=== PATIENT | male | born 1935 | race Caucasian/White ===

== ENCOUNTER 2018-05-27 20:09 | Inpatient (IN) ==
[2018-05-27] MEDS ORDERED: Sod Chloride 0.9% Inj 1,000 ML IV.CONT SCH (21:45)
[2018-05-27] MEDS ORDERED: Morphine Inj 4 MG/ML Vial IV.PUSH ONE (21:47)
--- NOTE | 2018-05-27 22:42 | ED ---
HPI General Chief complaint: Back Pain/Injury Stated complaint: fall 3 days ago-S1 broken-[facility] in [place] Time Seen by Provider: 05/27/18 21:26 Source: patient and family Mode of arrival: wheelchair Limitations: no limitations History of Present Illness HPI narrative: 83-year-old male brought in by his daughter as well as his for evaluation of worsening lower back pain after a fall that occurred on . The patient had a fall in his bathroom while in the shower on that date. He does not recall the entire fall, and he may have had a syncopal episode at that time. He was evaluated in our [place] ED on 05/22/18, and on that visit he had a CT abdomen pelvis that showed moderate to severe L1 compression fracture with mild posterior retropulsion as well as prominent distention of the bladder with nonspecific enlargement of the prostate gland: Bladder outlet obstruction versus neurogenic bladder. During that visit the emergency department provider advised that she would like to admit the patient, however the patient did not want to be transferred. The on-call neurosurgeon was called during the visit regarding his L1 compression fracture, and plan of care was for a TLSO brace, which the patient has not yet required. Since his fall he has had to wear depends for urinary incontinence. He has never had an issue with incontinence prior to the fall. States that his low back pain has been worsening, is moderate to severe, worse with even the slightest movements. Because of the pain he has not been as active as he usually is, has been spending a lot of time in bed, only to get out to use the restroom. States that the restroom is only a couple of steps away from his bed and he is able to hang onto the wall in order to make his way there. He denies any falls since the initial fall on 05/16/18 or any other syncopal episodes. No fevers. Related Data Previous Rx's Medication Instructions Recorded ibuprofen 600 mg PO TID PRN #14 tab 05/22/18 Allergies Allergy/AdvReac Type Severity Reaction Status Date / Time No Known Allergies Allergy Verified 05/22/18 15:02 Review of Systems ROS: all other systems reviewed are negative [facility] Medical History Medical History Patient denies medical problems (Acute) Surgical History Surgical History S/P lobectomy of lung (Acute) Social History Social History Substance History: No History of Abuse Smoking Status: Never smoker How Often Do You Have a Drink Containing Alcohol: Never Immunization History Tetanus Immunization: Unsure Exam Narrative Exam Narrative: GENERAL: Well-developed, well-nourished, elderly appearing male , comfortable, no apparent distress. SKIN: Focused skin assessment warm/dry. No lacerations, abrasions, or ecchymosis. HEAD: Atraumatic. Normocephalic. EYES: Pupils equal and round. No scleral icterus. No injection or drainage. ENT: No nasal bleeding or discharge. Mucous membranes pink and dry. NECK: Trachea midline. No JVD. No midline cervical spine step-off or tenderness. CARDIOVASCULAR: Regular rate and rhythm. RESPIRATORY: No accessory muscle use. Clear to auscultation. Breath sounds equal bilaterally. GASTROINTESTINAL: Abdomen soft, palpable distended bladder felt near the umbilicus with mild tenderness, no peritoneal signs. This was evaluated using a bedside ultrasound curvilinear probe and shows a very distended bladder. MUSCULOSKELETAL: No obvious deformities. No clubbing. No cyanosis. No edema. Moderate midline lower thoracic and superior lumbar spine tenderness without step-off. NEUROLOGICAL: Awake and alert. No obvious cranial nerve deficits. Normal speech. Normal sensation in all 4 extremities. Normal strength in bilateral upper extremities. 4 out of 5 strength in bilateral lower extremities in flexion and extension. Great toe extension present bilaterally. No saddle anesthesia. PSYCHIATRIC: Appropriate mood and affect; insight and judgment normal. Course Initial Documented Vital Signs Temperature 98.7 F 05/27/18 20:17 Pulse Rate 115 H 05/27/18 20:17 Respiratory Rate 20 05/27/18 20:17 Blood Pressure 138/60 05/27/18 20:17 Pulse Oximetry 96 05/27/18 20:17 Last Documented Vital Signs Temperature 98.7 F 05/27/18 20:17 Pulse Rate 105 H 05/27/18 21:06 Respiratory Rate 18 05/27/18 21:06 Blood Pressure 144/82 H 05/27/18 21:06 Pulse Oximetry 99 05/27/18 21:06 Medical Decision Making MDM Narrative Medical decision making narrative: Vital signs reviewed and show a slight tachycardia with a heart rate of 105. Blood pressure is 144/82. Procedure note: Bedside transabdominal ultrasound: Using a curvilinear ultrasound probe, a bedside transabdominal ultrasound was performed by me and shows a very distended bladder. Gale catheter was placed with 1200 cc of clear urine output. CBC is unremarkable. CMP is remarkable for sodium 131. Lipase is 1596. UA shows trace ketones, not suggestive of UTI. MRI lumbar spine: CONCLUSION: 1. There is an acute compression fracture of the L1 vertebral body with approximately 60% loss of vertebral body height. There is posterior convexity of the posterior margin of the L1 vertebral body but it causes no significant spinal canal stenosis. 2. Remaining levels demonstrate mild degenerative change, as above, but no significant spinal canal stenosis or neural foraminal narrowing is present. MRI thoracic spine: CONCLUSION: 1. There is an acute compression fracture involving the L1 vertebral body with approximately 60% height loss. 2. The thoracic spine demonstrates no acute abnormality. There is no spinal canal stenosis or neural foraminal narrowing. MRI cervical spine: CONCLUSION: 1. Multilevel degenerative disc disease, as above, without significant spinal canal stenosis. 2. There is mild right neural foraminal narrowing at C3-C4. 3. There is slight anterolisthesis of C5 on C6 and C6 on C7. I reviewed the CT abdomen pelvis that the patient had on 05/22/18. He had urinary retention at that time with a distended bladder and an enlarged prostate. I believe that the patient's urinary retention/overflow incontinence is more likely secondary to enlarged prostate as the MRI of his lumbar spine does not show significant canal stenosis. The patient is elderly and frail, and his is also elderly. He was given 2 mg of morphine for his pain which seemed to make him a little drowsy, however he still has lower back pain with movements which improves with rest. I also do not have an explanation for his lipase of 1596. He does not have any abdominal tenderness, and the CT abdomen pelvis performed on prior visit does not show any pancreatic or hepatobiliary abnormalities. At this point the patient will be admitted for at least overnight observation for pain control, IV hydration, repeat lipase, likely neurology and urology consultation. Case discussed with hospitalist Dr. Clements who will admit the patient to the hospitalist service. Medical Screen Exam Complete: Yes Emergency Medical Condition: Yes Differential Diagnosis Differential Diagnosis: Lumbar vertebral fracture with spinal cord compression, urinary retention, obstructive uropathy, metabolic abnormality Lab Data Result diagrams: 05/27/18 22:32 05/27/18 22:32 Lab Results 05/27/18 05/27/18 05/27/18 Range/Units 22:20 22:32 22:32 WBC 9.4 (4.0-11.0) th/mm3 RBC 4.30 L (4.50-5.90) mil/mm3 Hgb 14.3 (13.0-17.0) gm/dL Hct 41.0 (39.0-51.0) % MCV 95.3 (80.0-100.0) fL MCH 33.3 (27.0-34.0) pg MCHC 35.0 (32.0-36.0) % RDW 12.7 (11.6-17.2) % Plt Count 393 (150-450) th/mm3 MPV 7.2 (7.0-11.0) fL Neut % (Auto) 70.3 H (16.0-70.0) % Lymph % (Auto) 18.3 (9.0-44.0) % [place] % (Auto) 9.6 H (0.0-8.0) % Eos % (Auto) 1.0 (0.0-4.0) % Baso % (Auto) 0.8 (0.0-2.0) % Neut # (Auto) 6.6 (1.8-7.7) th/mm3 Lymph # (Auto) 1.7 (1.0-4.8) th/mm3 [place] # (Auto) 0.9 (0.0-0.9) th/mm3 Eos # (Auto) 0.1 (0.0-0.4) th/mm3 Baso # (Auto) 0.1 (0.0-0.2) th/mm3 WBC Differential . Differential Comment Auto diff final PT 10.3 (9.8-11.6) sec INR 1.0 Ratio APTT 28.2 (23.4-31.7) sec Sodium (136-145) meq/L Potassium (3.5-5.1) meq/L Chloride (98-107) meq/L Carbon Dioxide (21.0-32.0) meq/L Anion Gap (5-15) meq/L BUN (7-18) mg/dL Creatinine (0.60-1.30) mg/dL Estimated GFR (>89) mL/min Random Glucose (74-106) mg/dL Calcium (8.5-10.1) mg/dL Magnesium (1.5-2.5) mg/dL Total Bilirubin (0.2-1.0) mg/dL AST (15-37) U/L ALT (12-78) U/L Alkaline Phosphatase (45-117) U/L Total Protein (6.4-8.2) g/dL Albumin (3.4-5.0) g/dL Lipase (73-393) U/L Urine Color Yellow (Yellw/Straw) Urine Clarity Clear (Clear) Urine pH 6.0 (5.0-8.5) Ur Specific [place] 1.013 (1.002-1.035) Urine Protein Negative (Neg-Trace) mg/dL Urine Glucose (UA) Negative (Negative) mg/dL Urine Ketones Trace H (Negative) mg/dL Urine Occult Blood Negative (Negative) Urine Nitrate Negative (Negative) Urine Bilirubin Negative (Negative) Urine Urobilinogen Less than 2 (Less than 2) mg/dL Ur Leukocyte Esterase Negative (Negative) Micro UA Comment Cath-culture not ind Ur Microscopic Review Not Reportable Urine Culture Comments Cath-cult not ind 05/27/18 Range/Units 22:32 WBC (4.0-11.0) th/mm3 RBC (4.50-5.90) mil/mm3 Hgb (13.0-17.0) gm/dL Hct (39.0-51.0) % MCV (80.0-100.0) fL MCH (27.0-34.0) pg MCHC (32.0-36.0) % RDW (11.6-17.2) % Plt Count (150-450) th/mm3 MPV (7.0-11.0) fL Neut % (Auto) (16.0-70.0) % Lymph % (Auto) (9.0-44.0) % [place] % (Auto) (0.0-8.0) % Eos % (Auto) (0.0-4.0) % Baso % (Auto) (0.0-2.0) % Neut # (Auto) (1.8-7.7) th/mm3 Lymph # (Auto) (1.0-4.8) th/mm3 [place] # (Auto) (0.0-0.9) th/mm3 Eos # (Auto) (0.0-0.4) th/mm3 Baso # (Auto) (0.0-0.2) th/mm3 WBC Differential Differential Comment PT (9.8-11.6) sec INR Ratio APTT (23.4-31.7) sec Sodium 131 L (136-145) meq/L Potassium 4.7 (3.5-5.1) meq/L Chloride 97 L (98-107) meq/L Carbon Dioxide 29.7 (21.0-32.0) meq/L Anion Gap 4 L (5-15) meq/L BUN 21 H (7-18) mg/dL Creatinine 1.00 (0.60-1.30) mg/dL Estimated GFR 71 L (>89) mL/min Random Glucose 100 (74-106) mg/dL Calcium 9.8 (8.5-10.1) mg/dL Magnesium 2.7 H (1.5-2.5) mg/dL Total Bilirubin 0.5 (0.2-1.0) mg/dL AST 21 (15-37) U/L ALT 16 (12-78) U/L Alkaline Phosphatase 95 (45-117) U/L Total Protein 7.1 (6.4-8.2) g/dL Albumin 3.4 (3.4-5.0) g/dL Lipase 1597 H (73-393) U/L Urine Color (Yellw/Straw) Urine Clarity (Clear) Urine pH (5.0-8.5) Ur Specific [place] (1.002-1.035) Urine Protein (Neg-Trace) mg/dL Urine Glucose (UA) (Negative) mg/dL Urine Ketones (Negative) mg/dL Urine Occult Blood (Negative) Urine Nitrate (Negative) Urine Bilirubin (Negative) Urine Urobilinogen (Less than 2) mg/dL Ur Leukocyte Esterase (Negative) Micro UA Comment Ur Microscopic Review Urine Culture Comments Imaging Data Radiologist's impression: Lumbar Spine MRI 05/27/18 21:43 CONCLUSION: 1. There is an acute compression fracture of the L1 vertebral body with approximately 60% loss of vertebral body height. There is posterior convexity of the posterior margin of the L1 vertebral body but it causes no significant spinal canal stenosis. 2. Remaining levels demonstrate mild degenerative change, as above, but no significant spinal canal stenosis or neural foraminal narrowing is present. Thoracic Spine MRI 05/27/18 21:43 CONCLUSION: 1. There is an acute compression fracture involving the L1 vertebral body with approximately 60% height loss. 2. The thoracic spine demonstrates no acute abnormality. There is no spinal canal stenosis or neural foraminal narrowing. Cervical Spine MRI 05/27/18 22:43 CONCLUSION: 1. Multilevel degenerative disc disease, as above, without significant spinal canal stenosis. 2. There is mild right neural foraminal narrowing at C3-C4. 3. There is slight anterolisthesis of C5 on C6 and C6 on C7. ECG Data Attestation: I personally reviewed and interpreted this ECG as follows: (Sinus with sinus arrhythmia, rate 94, normal axis, normal intervals, no acute ischemic abnormality.) Discharge Plan Discharge Disposition Patient Disposition: 30 Still Patient Discharge Condition Condition: Stable Discharge Details Diagnosis: Closed compression fracture of L1 lumbar vertebra, Pancreatitis, Urinary retention Physicians Team ED Provider: Chito Motley Primary Care Provider: UNKNOWN, Rxs /Orders / Referrals /Forms Prescriptions: No Action ibuprofen 600 mg tablet 600 mg PO TID PRN (Reason: pain) Qty: 14 RF: 0 Discharge Interventions Interventions: Vital Signs Last Done: 05/27/18 21:06 Status ED Status: With Doctor
[2018-05-27 22:46] LABS: Baso # (Auto) 0.1 th/mm3 (0.0-0.2); Baso % (Auto) 0.8 % (0.0-2.0); Eos # (Auto) 0.1 th/mm3 (0.0-0.4); Hemoglobin 14.3 gm/dL (13.0-17.0); Lymph # (Auto) 1.7 th/mm3 (1.0-4.8); Lymph % (Auto) 18.3 % (9.0-44.0); Mean Corpuscular Hemoglobin 33.3 pg (27.0-34.0); Mean Corpuscular Volume 95.3 fL (80.0-100.0); Mean Platelet Volume 7.2 fL (7.0-11.0); Mono # (Auto) 0.9 th/mm3 (0.0-0.9); Mono % (Auto) 9.6 % (0.0-8.0); Neut # (Auto) 6.6 th/mm3 (1.8-7.7); Neut % (Auto) 70.3 % (16.0-70.0); Platelet Count 393 th/mm3 (150-450); Red Cell Distribution Width 12.7 % (11.6-17.2); White Blood Count 9.4 th/mm3 (4.0-11.0)
[2018-05-27 22:52] LABS: Bilirubin,Urine Negative (Negative); Clarity,Urine Clear (Clear); Color,Urine Yellow (Yellw/Straw); Glucose,Urine (UA) Negative (Negative); Leukocyte Esterase,Urine Negative (Negative); Nitrite,Urine Negative (Negative); Specific Gravity,Urine 1.013 (1.002-1.035)
[2018-05-27 23:08] LABS: Activated Partial Thrombo Time 28.2 sec (23.4-31.7); Prothrombin Time 10.3 sec (9.8-11.6)
[2018-05-27 23:12] LABS: Alanine Aminotransferase 16 U/L (12-78)
[2018-05-27 23:14] LABS: Alkaline Phosphatase 95 U/L (45-117); Lipase 1597 U/L (73-393); Total Protein 7.1 g/dL (6.4-8.2)
--- NOTE | 2018-05-27 23:23 | MR ---
EXAM DATE: 05/27/2018 11:15 PM EST AGE/SEX: 83 years / Male INDICATIONS: Pain. CLINICAL DATA: This is the patient's initial encounter. Patient reports that signs and symptoms have been present for 2 weeks and indicates a pain score of 9/10. MEDICAL/SURGICAL HISTORY: None. Lobectomy. COMPARISON: No prior exams available for comparison. TECHNIQUE: Multiplanar, multisequence MRI of the lumbar spine was performed without contrast. Patie nt was scanned in a sitting position; neutral, flexion, and extension scans were performed in the sa gittal plane. FINDINGS: The most caudal-appearing lumbar vertebra is numbered as L5. VERTEBRAE: There is bone marrow edema with height loss within the L1 vertebral body with approximate ly 60% loss of vertebral body height. There is posterior convexity of the posterior superior margin o f L1. Edema extends into the pedicles bilaterally. Remaining vertebral bodies demonstrate normal heig ht and marrow signal. There is no anterolisthesis or retrolisthesis. [place]US: Normal level and configuration. T12-L1: The posterior convexity of the posterior aspect of the L1 vertebral body secondary to the co mpression fracture effaces the lateral recesses but causes no significant spinal canal stenosis. Ther e is no significant neural foraminal narrowing. L1-L2: No disc herniation, canal stenosis, or neural foraminal stenosis. L2-L3: There is a mild diffuse disc bulge and mild facet and ligamentum flavum hypertrophy. No signi ficant spinal canal stenosis or neural foraminal stenosis is present. L3-L4: There is disc desiccation with a diffuse disc bulge and mild facet and ligamentum flavum hype rtrophy. No spinal canal stenosis or neural foraminal narrowing is present. L4-L5: There is a diffuse disc bulge with moderate facet and ligamentum flavum hypertrophy. No spina l canal stenosis or neural foraminal narrowing is present. L5-S1: There is moderate bilateral facet hypertrophy. No significant disc herniation, canal stenosis , or neural foraminal stenosis is present. Other: The visualized surrounding structures demonstrate no acute abnormality. CONCLUSION: 1. There is an acute compression fracture of the L1 vertebral body with approximately 60% loss of ve rtebral body height. There is posterior convexity of the posterior margin of the L1 vertebral body bu t it causes no significant spinal canal stenosis. 2. Remaining levels demonstrate mild degenerative change, as above, but no significant spinal canal stenosis or neural foraminal narrowing is present. Electronically signed by: Irineo Dubose MD 05/27/2018 11:21 PM EST
--- NOTE | 2018-05-27 23:24 | MR ---
EXAM DATE: 05/27/2018 11:07 PM EST AGE/SEX: 83 years / Male INDICATIONS: Pain. Patient fall about 10 days ago. CLINICAL DATA: This is the patient's initial encounter. Patient reports that signs and symptoms have been present for 2 weeks and indicates a pain score of 9/10. MEDICAL/SURGICAL HISTORY: None. Lobectomy. COMPARISON: No prior exams available for comparison. TECHNIQUE: Multiplanar, multisequence MRI of the thoracic spine was performed. FINDINGS: Vertebrae: There is bone marrow edema and height loss involving the L1 vertebral body with approxima tely 60% loss of vertebral body height consistent with an acute compression fracture. The vertebral b odies throughout the thoracic spine demonstrate normal marrow signal and vertebral body height. Alignment: No anterolisthesis or retrolisthesis. There is accentuated thoracic kyphosis. Cord: Normal signal. T1-T2: No disc herniation, canal stenosis, or neural foraminal stenosis. T2-T3: No disc herniation, canal stenosis, or neural foraminal stenosis. T3-T4: No disc herniation, canal stenosis, or neural foraminal stenosis. T4-T5: No disc herniation, canal stenosis, or neural foraminal stenosis. T5-T6: No disc herniation, canal stenosis, or neural foraminal stenosis. T6-T7: No disc herniation, canal stenosis, or neural foraminal stenosis. T7-T8: No disc herniation, canal stenosis, or neural foraminal stenosis. T8-T9: No disc herniation, canal stenosis, or neural foraminal stenosis. T9-T10: No disc herniation, canal stenosis, or neural foraminal stenosis. T10-T11: No disc herniation, canal stenosis, or neural foraminal stenosis. T11-T12: No disc herniation, canal stenosis, or neural foraminal stenosis. T12-L1: No disc herniation, canal stenosis, or neural foraminal stenosis. Other: The visualized surrounding structures demonstrate no acute abnormality. CONCLUSION: 1. There is an acute compression fracture involving the L1 vertebral body with approximately 60% hei ght loss. 2. The thoracic spine demonstrates no acute abnormality. There is no spinal canal stenosis or neural foraminal narrowing. Electronically signed by: Irineo Dubose MD 05/27/2018 11:23 PM EST
[2018-05-27 23:32] LABS: Albumin 3.4 g/dL (3.4-5.0); Anion Gap 4 meq/L (5-15); Aspartate Aminotransferase 21 U/L (15-37); Blood Urea Nitrogen 21 mg/dL (7-18); Calcium 9.8 mg/dL (8.5-10.1); Carbon Dioxide 29.7 meq/L (21.0-32.0); Chloride 97 meq/L (98-107); Glomerular Filtration Rate 71 mL/min (>89); Glucose,Random 100 mg/dL (74-106); Magnesium 2.7 mg/dL (1.5-2.5); Potassium 4.7 meq/L (3.5-5.1); Sodium 131 meq/L (136-145)
--- NOTE | 2018-05-27 23:58 | MR ---
EXAM DATE: 05/27/2018 11:42 PM EST AGE/SEX: 83 years / Male INDICATIONS: Pain. CLINICAL DATA: This is the patient's initial encounter. Patient reports that signs and symptoms have been present for 2 weeks and indicates a pain score of 9/10. MEDICAL/SURGICAL HISTORY: None. Lobectomy. COMPARISON: No prior exams available for comparison. TECHNIQUE: Multiplanar, multisequence MRI examination of the cervical spine was performed without co ntrast. FINDINGS: Vertebrae: Bone marrow signal is within normal limits. No acute abnormality. Alignment: There is minimal anterolisthesis of C5 on C6 and C6 on C7 measuring approximately 3 mm at each level. There is accentuated lordosis. Cord: There is a focal T2 signal within the central cord at the C4-C5 level. Otherwise, spinal cord signal is within normal limits. Post Fossa: The cerebellar tonsils are normal in position. The craniocervical junction and C1-C2 level demonstrate no acute abnormality. C2-C3: Decreased disc height. No spinal canal stenosis or neural foraminal narrowing is present. C3-C4: Decreased disc height. There are small uncovertebral osteophytes bilaterally. No spinal canal stenosis is present. There is mild right neural foraminal narrowing. C4-C5: Decreased disc height with mild right facet arthrosis. There is a small right uncovertebral o steophyte. No significant spinal canal stenosis or neural foraminal narrowing is present. C5-C6: Decreased disc height with minimal posterior disc osteophyte complex. No spinal canal stenosi s or neural foraminal narrowing is appreciated. C6-C7: Decreased disc height with minimal posterior disc osteophyte complex no spinal canal stenosis or neural foraminal narrowing is present. C7-T1: No disc herniation, canal stenosis, or neural foraminal stenosis. Other: The visualized surrounding structures demonstrate no acute abnormality. CONCLUSION: 1. Multilevel degenerative disc disease, as above, without significant spinal canal stenosis. 2. There is mild right neural foraminal narrowing at C3-C4. 3. There is slight anterolisthesis of C5 on C6 and C6 on C7. Electronically signed by: Irineo Dubose MD 05/27/2018 11:56 PM EST
[2018-05-28] MEDS ORDERED: Acetaminophen 325 MG Tablet PO PRN (00:08)
[2018-05-28] MEDS ORDERED: Bisacodyl 10 MG Supp RECTAL PRN (00:08)
[2018-05-28] MEDS ORDERED: Sod Chloride 0.9% Inj 1,000 ML IV.CONT SCH (00:15)
--- NOTE | 2018-05-28 00:46 | P.HPIM ---
History of Present Illness Primary Care Physician: UNKNOWN History of Present Illness: This is an 83 year old male w/ no significant PMH who was brought to the ER by family for c/o back pain. Seen in [place] ER on 05/22/18 for similar complaints. Pt had apparent fall w/ syncope few days prior to that on 05/16/18 and had fall while in the bathtub, had ongoing complaints of back pain and presented to [place] ER on 05/22. CT Abd/Pelvis at that time w/ moderate to severe L1 compression fracture and distention of the bladder, Dr. Champagne was contacted by the ER physician who recommended non-surgical intervention and to have pt come to [place] to be fitted for a TLSO brace. Per pt and family they weren't able to come here until tonight. and daughter at bedside report pt w/ worsening back pain, inability to ambulate due to pain complaints and decreased urine output. On arrival, BP 138/60, HR 115, O2 sat 96% on RA, Afebrile. CBC unremarkable. Lipase 1597. U/a negative for UTI. S/p Gale placement w/ approx 1200ml output. reports issues w/ urinary retention since fall. C-Spine MRI w/ no significant stenosis, T/L-Spine MRI w/ acute compression fracture L1 w/ 60% loss of height, no significant canal stenosis. - Diagnosis (1) Pancreatitis (2) Urinary retention (3) Closed compression fracture of L1 lumbar vertebra Review of Systems PAST FAMILY HISTORY: Reviewed. No h/o DM or CAD All other systems reviewed negative except as stated in HPI PMFSH - History History Provided By: Patient - Medical History Medical History: Medical History (Last Reviewed 05/22/18 @ 15:28 by Bebo Wong MD) Patient denies medical problems - Surgical History Surgical History: Surgical History (Last Updated 05/27/18 @ 21:01 by Kg Mendenhall) S/P lobectomy of lung - Tobacco History Smoking Status: Never smoker - Alcohol History How Often Do You Have a Drink Containing Alcohol: Never - Substance Use History Substance History: No History of Abuse - Immunization History Tetanus Immunization: Unsure Medications and Allergies Active Medications: Active Medications Acetaminophen (Tylenol) 650 mg PO Q4H PRN PRN Reason: Temp > 100.4 Hydrocodone Bitart/Acetaminophen ([place] 5/325) 1 tab PO Q4H PRN PRN Reason: PAIN 3-5 Al Hydroxide/Mg Hydroxide (Milk Of Magnesia Liq) 30 ml PO Q12H PRN PRN Reason: Mild Constipation Bisacodyl (Dulcolax Supp) 10 mg RECTAL DAILY PRN PRN Reason: SEVERE CONSITIPATION Sodium Chloride (Ns Inj) 1,000 mls @ 125 mls/hr IV.CONT .Q8H [facility] Stop: 05/28/18 05:44 Last Admin: 05/27/18 22:36 Dose: 125 mls/hr Sodium Chloride (Ns Inj) 1,000 mls @ 100 mls/hr IV.CONT .Q10H [facility] Stop: 05/28/18 10:14 Lactulose (Lactulose Liq) 30 ml PO DAILY PRN PRN Reason: SEVERE CONSITIPATION Morphine Sulfate (Morphine Inj) 2 mg IV.PUSH Q4H PRN PRN Reason: PAIN 6-10 Ondansetron HCl (Zofran Inj) 4 mg IV.PUSH Q6H PRN PRN Reason: NAUSEA OR VOMITING Senna/Docusate Sodium (Yani-Colace) 1 tab PO BID [facility] Sennosides (Senokot) 17.2 mg PO Q12H PRN PRN Reason: Moderate Constipation Sodium Chloride (Ns Flush) 2 ml IV.FLUSH PRN PRN PRN Reason: FLUSH AFTER USING IV ACCESS Sodium Chloride (Ns Flush) 2 ml IV.FLUSH BID JEFF Sodium Chloride (Ns Flush) 2 ml IV.FLUSH PRN PRN PRN Reason: FLUSH AFTER USING IV ACCESS Tamsulosin HCl (Flomax) 0.4 mg PO DAILY [facility] Allergies Allergy/AdvReac Type Severity Reaction Status Date / Time No Known Allergies Allergy Verified 05/22/18 15:02 Exam Vital signs: Vital Signs 05/27/18 20:17 05/27/18 21:06 Temperature 98.7 F Pulse Rate 115 H 105 H Respiratory Rate 20 18 Blood Pressure 138/60 144/82 H Pulse Oximetry 96 99 Intake & Output 05/27/18 05/27/18 05/28/18 06:59 18:59 06:59 Output Total 1200 / 1200 Balance -1200 / -1200 Weight 54.431 kg Output: Urine Amount (Catheter) 1200 / 1200 Indwelling Urethral Catheter 1200 / 1200 Narrative: PE: GENERAL: Pleasant elderly white male in no acute distress, very thin. and daughter at bedside. SKIN: Focused skin assessment warm and dry. HEENT: PERRLA, EOMI. No scleral icterus or conjunctival pallor. No lid lag or facial droop. CARDIOVASCULAR: Regular rate and rhythm. no obvious murmurs to auscultation. No chest tenderness to palpation. RESPIRATORY: No obvious rhonchi or wheezing. Clear to auscultation. Breath sounds equal bilaterally. GASTROINTESTINAL: Abdomen soft, non-tender, nondistended. BS normal. Gale in place. MUSCULOSKELETAL: Extremities without clubbing, cyanosis, or edema. No obvious deformities. NEUROLOGICAL: Awake, alert and oriented x4. No focal neurologic deficits. Moving both upper and lower extremities spontaneously. PSYCHIATRIC: Appropriate mood and affect. Insight and judgment normal. Results - Labs CBC & Chem 7: 05/27/18 22:32 05/27/18 22:32 Labs: Short CBC 05/27/18 Range/Units 22:32 WBC 9.4 (4.0-11.0) th/mm3 Hgb 14.3 (13.0-17.0) gm/dL Hct 41.0 (39.0-51.0) % Plt Count 393 (150-450) th/mm3 BMP 05/27/18 22:32 Sodium 131 L Potassium 4.7 Chloride 97 L Carbon Dioxide 29.7 BUN 21 H Creatinine 1.00 Calcium 9.8 Liver Function 05/27/18 Range/Units 22:32 Total Bilirubin 0.5 (0.2-1.0) mg/dL AST 21 (15-37) U/L ALT 16 (12-78) U/L Alkaline Phosphatase 95 (45-117) U/L Albumin 3.4 (3.4-5.0) g/dL Urine 05/27/18 Range/Units 22:20 Urine Color Yellow (Yellw/Straw) Urine Clarity Clear (Clear) Urine pH 6.0 (5.0-8.5) Ur Specific [place] 1.013 (1.002-1.035) Urine Protein Negative (Neg-Trace) mg/dL Urine Glucose (UA) Negative (Negative) mg/dL - Imaging Impressions Lumbar Spine MRI 05/27/18 21:43 CONCLUSION: 1. There is an acute compression fracture of the L1 vertebral body with approximately 60% loss of vertebral body height. There is posterior convexity of the posterior margin of the L1 vertebral body but it causes no significant spinal canal stenosis. 2. Remaining levels demonstrate mild degenerative change, as above, but no significant spinal canal stenosis or neural foraminal narrowing is present. Thoracic Spine MRI 05/27/18 21:43 CONCLUSION: 1. There is an acute compression fracture involving the L1 vertebral body with approximately 60% height loss. 2. The thoracic spine demonstrates no acute abnormality. There is no spinal canal stenosis or neural foraminal narrowing. Cervical Spine MRI 05/27/18 22:43 CONCLUSION: 1. Multilevel degenerative disc disease, as above, without significant spinal canal stenosis. 2. There is mild right neural foraminal narrowing at C3-C4. 3. There is slight anterolisthesis of C5 on C6 and C6 on C7. Caprini VTE Risk Assessment Caprini VTE Risk Assessment: No/Low Risk (score <= 1) Caprini Risk Assessment Model: Point Value = 1 Point Value = 2 Point Value = 3 Point Value = 5 Age 41-60 Minor surgery BMI > 25 kg/m2 Swollen legs Varicose veins or History of unexplained or recurrent spontaneous Oral contraceptives or hormone replacement Sepsis (< 1 month) Serious lung disease, including pneumonia (< 1 month) Abnormal pulmonary function Acute myocardial infarction Congestive heart failure (< 1 month) History of inflammatory bowel disease Medical patient at bed rest Age 61-74 Arthroscopic surgery Major open surgery (> 45 min) Laparoscopic surgery (> 45 min) Malignancy Confined to bed (> 72 hours) Immobilizing plaster cast Central venous access Age >= 75 History of VTE Family history of VTE Factor V Leiden Prothrombin [id number] Lupus anticoagulant Anticardiolipin antibodies Elevated serum homocysteine Heparin-induced thrombocytopenia Other congenital or acquired thrombophilia Stroke (< 1 month) Elective arthroplasty Hip, pelvis, or leg fracture Acute spinal cord injury (< 1 month) Prophylaxis Regimen: Total Risk Factor Score Risk Level Prophylaxis Regimen 0-1 Low Early ambulation 2 Moderate Order ONE of the following: *Sequential Compression Device (SCD) *Heparin 5000 units SQ BID 3-4 Higher Order ONE of the following medications: *Heparin 5000 units SQ TID *Enoxaparin/Lovenox 40 mg SQ daily (WT < 150 kg, CrCl > 30 mL/min) *Enoxaparin/Lovenox 30 mg SQ daily (WT < 150 kg, CrCl > 10-29 mL/min) *Enoxaparin/Lovenox 30 mg SQ BID (WT < 150 kg, CrCl > 30 mL/min) AND/OR *Sequential Compression Device (SCD) 5 or more Highest Order ONE of the following medications: *Heparin 5000 units SQ TID (Preferred with Epidurals) *Enoxaparin/Lovenox 40 mg SQ daily (WT < 150 kg, CrCl > 30 mL/min) *Enoxaparin/Lovenox 30 mg SQ daily (WT < 150 kg, CrCl > 10-29 mL/min) *Enoxaparin/Lovenox 30 mg SQ BID (WT < 150 kg, CrCl > 30 mL/min) AND *Sequential Compression Device (SCD) Assessment and Plan - Assessment (1) Pancreatitis Code(s): K85.90 - Acute pancreatitis without necrosis or infection, unspecified Status: Acute (2) Urinary retention Code(s): R33.9 - Retention of urine, unspecified Status: Acute (3) Closed compression fracture of L1 lumbar vertebra Code(s): S32.010A - Wedge compression fracture of first lumbar vertebra, initial encounter for closed fracture Status: Acute - Plan A/P: 1. L1 Compression Fx: s/p syncopal event while in the bath on 05/16/18, seen in [place] ER on 05/22/18 for ongoing c/o back pain, CT Abd/Pelvis w/ L1 compression fracture, Dr. Champagne consulted at that time, no surgical intervention , recommendation for TLSO fitting here at [place]. Now w/ ongoing/progressive back pain and worsening mobility, unable to ambulate due to pain. MRI T/L- Spine w/ acute L1 compression fracture, no canal stenosis. TLSO brace, Consult NxSx for further evaluation/intervention. PT for eval/tx. 2. Pancreatitis: Lipase 1500, no c/o abdominal pain, no nausea/vomiting. IVF for hydration, repeat Lipase for trend. 3. Urinary Retention: CT Abd/Pelvis 05/22/18 w/ distention of bladder and enlargement of prostate, s/p Gale in ER today w/ 1200ml urine output, start Flomax, monitor I/O, Urology eval as needed. 4. Syncope: reports multiple episodes of syncope, no previous work up in the past as he did not seek medical attention. Telemetry, check serial cardiac enzymes, check Echo to eval for valvular abnormality/cardiomyopathy. 5. DVT Prophylaxis: SCD/Teds 6. Social work for d/c planning as needed. 7. Case discussed w/ ER physician at length, labs/records/imaging reviewed by me.
[2018-05-28] MEDS: Morphine Sulfate Inj 2 MG/ML Vial IV.PUSH PRN ×2 (02:39→15:09)
[2018-05-28 06:26] LABS: Baso # (Auto) 0.1 th/mm3 (0.0-0.2); Baso % (Auto) 0.7 % (0.0-2.0); Eos # (Auto) 0.1 th/mm3 (0.0-0.4); Hematocrit 39.8 % (39.0-51.0); Hemoglobin 14.1 gm/dL (13.0-17.0); Lymph # (Auto) 1.6 th/mm3 (1.0-4.8); Lymph % (Auto) 15.4 % (9.0-44.0); Mean Corpuscular HGB Conc 35.4 % (32.0-36.0); Mean Corpuscular Hemoglobin 34.3 pg (27.0-34.0); Mean Corpuscular Volume 96.7 fL (80.0-100.0); Mean Platelet Volume 7.1 fL (7.0-11.0); Mono % (Auto) 9.1 % (0.0-8.0); Neut # (Auto) 7.9 th/mm3 (1.8-7.7); Neut % (Auto) 73.8 % (16.0-70.0); Platelet Count 393 th/mm3 (150-450); Red Blood Count 4.12 mil/mm3 (4.50-5.90); Red Cell Distribution Width 12.5 % (11.6-17.2); White Blood Count 10.7 th/mm3 (4.0-11.0)
[2018-05-28 06:53] LABS: Albumin 3.1 g/dL (3.4-5.0); Anion Gap 6 meq/L (5-15); Aspartate Aminotransferase 15 U/L (15-37); Blood Urea Nitrogen 21 mg/dL (7-18); Calcium 9.1 mg/dL (8.5-10.1); Carbon Dioxide 30.7 meq/L (21.0-32.0); Chloride 99 meq/L (98-107); Glomerular Filtration Rate 88 mL/min (>89); Glucose,Random 92 mg/dL (74-106); Lipase 286 U/L (73-393); Potassium 4.6 meq/L (3.5-5.1); Sodium 136 meq/L (136-145)
[2018-05-28 06:56] LABS: Alanine Aminotransferase 13 U/L (12-78); Alkaline Phosphatase 88 U/L (45-117); Total Protein 6.5 g/dL (6.4-8.2)
[2018-05-28] MEDS: Senna/Docusate Sodium 8.6/50 MG Tablet PO SCH ×2 (08:49→20:45)
--- NOTE | 2018-05-28 10:15 | P.CONNS ---
History of Present Illness Reason for Consult: L1 compression fx Primary Care Provider: UNKNOWN History of Present Illness: 83yoM admitted overnight through the ER with syncope and acute L1 compression fx. Endorses back pain. TLSO brace at bedside. Neurologically intact. Has been vomiting (including breakfast today)-- last pain med 2am. PMFSH - History History Provided By: Patient - Medical History Medical History: Medical History (Last Reviewed 05/28/18 @ 09:20 by Yenifer Moss) Patient denies medical problems - Surgical History Surgical History: Surgical History (Last Reviewed 05/28/18 @ 09:20 by Yenifer Moss) S/P lobectomy of lung - Tobacco History Second Hand Smoke Exposure: No Smoking Status: Never smoker - Alcohol History How Often Do You Have a Drink Containing Alcohol: Never - Substance Use History Substance History: No History of Abuse - Immunization History Tetanus Immunization: Unsure Medications and Allergies Active Medications: Active Medications Acetaminophen (Tylenol) 650 mg PO Q4H PRN PRN Reason: Temp > 100.4 Hydrocodone Bitart/Acetaminophen ([place] 5/325) 1 tab PO Q4H PRN PRN Reason: PAIN 3-5 Al Hydroxide/Mg Hydroxide (Milk Of Magnesia Liq) 30 ml PO Q12H PRN PRN Reason: Mild Constipation Bisacodyl (Dulcolax Supp) 10 mg RECTAL DAILY PRN PRN Reason: SEVERE CONSITIPATION Sodium Chloride (Ns Inj) 1,000 mls @ 100 mls/hr IV.CONT .Q10H [facility] Stop: 05/28/18 10:14 Last Admin: 05/28/18 00:55 Dose: 100 mls/hr Lactulose (Lactulose Liq) 30 ml PO DAILY PRN PRN Reason: SEVERE CONSITIPATION Morphine Sulfate (Morphine Inj) 2 mg IV.PUSH Q4H PRN PRN Reason: PAIN 6-10 Last Admin: 05/28/18 02:39 Dose: 2 mg Ondansetron HCl (Zofran Inj) 4 mg IV.PUSH Q6H PRN PRN Reason: NAUSEA OR VOMITING Last Admin: 05/28/18 08:53 Dose: 4 mg Senna/Docusate Sodium (Yani-Colace) 1 tab PO BID JEFF Last Admin: 05/28/18 08:49 Dose: 1 tab Sennosides (Senokot) 17.2 mg PO Q12H PRN PRN Reason: Moderate Constipation Sodium Chloride (Ns Flush) 2 ml IV.FLUSH PRN PRN PRN Reason: FLUSH AFTER USING IV ACCESS Sodium Chloride (Ns Flush) 2 ml IV.FLUSH BID [facility] Last Admin: 05/28/18 08:50 Dose: Not Given Sodium Chloride (Ns Flush) 2 ml IV.FLUSH PRN PRN PRN Reason: FLUSH AFTER USING IV ACCESS Tamsulosin HCl (Flomax) 0.4 mg PO DAILY [facility] Last Admin: 05/28/18 08:49 Dose: 0.4 mg Allergies Allergy/AdvReac Type Severity Reaction Status Date / Time No Known Allergies Allergy Verified 05/22/18 15:02 Exam Vital signs: Vital Signs 05/27/18 20:17 05/27/18 21:06 05/28/18 01:12 Temperature 98.7 F Pulse Rate 115 H 105 H 97 H Respiratory Rate 20 18 18 Blood Pressure 138/60 144/82 H 131/73 Pulse Oximetry 96 99 97 05/28/18 02:19 05/28/18 02:30 05/28/18 03:55 Temperature 97.2 F L 97.8 F Pulse Rate 100 H 110 H Respiratory Rate 16 16 16 Blood Pressure 121/61 121/71 Pulse Oximetry 98 97 05/28/18 08:00 Temperature 97.5 F L Pulse Rate 99 H Respiratory Rate 18 Blood Pressure 122/57 L Pulse Oximetry 99 Intake & Output 05/27/18 05/28/18 05/28/18 18:59 06:59 18:59 Intake Total 250 / 250 Output Total 1325 / 1325 Balance -1075 / -1075 Weight 55.5 kg Intake: IV 250 / 250 NS Inj 1,000 ML @ 125 mls/hr IV 250 / 250 .CONT .Q8H [facility] Rx#:[id number] Oral 0 / 0 Output: Urine 125 / 125 Urine Amount (Catheter) 1200 / 1200 Indwelling Urethral Catheter 1200 / 1200 Other: Date of Last Bowel Movement 05/26/18 05/26/18 # Bowel Movements 0 Weight On Admission 54.431 kg Narrative: A&O x 3 CN II-XII intact Motor 5/5 UE / LE Results - Laboratory Findings CBC and BMP: 05/28/18 05:44 05/28/18 05:44 Abnormal lab findings: Abnormal Labs 05/27/18 05/27/18 05/27/18 22:20 22:32 22:32 RBC 4.30 L MCH Neut % (Auto) 70.3 H [place] % (Auto) 9.6 H Neut # (Auto) [place] # (Auto) Sodium 131 L Chloride 97 L Anion Gap 4 L BUN 21 H Estimated GFR 71 L Magnesium 2.7 H Albumin Lipase 1597 H Urine Ketones Trace H 05/28/18 05/28/18 05:44 05:44 RBC 4.12 L MCH 34.3 H Neut % (Auto) 73.8 H [place] % (Auto) 9.1 H Neut # (Auto) 7.9 H [place] # (Auto) 1.0 H Sodium Chloride Anion Gap BUN 21 H Estimated GFR 88 L Magnesium Albumin 3.1 L Lipase Urine Ketones Assessment and Plan - Plan 83yoM with acute l1 compression fx. Reviewed MRI C/T/L-spines. Agree w/ TLSO bracing-- could switch to just LSO if this is uncomfortable check w/ [facility]. Out of bed with PT, and brace when OOB. Pain control. Nausea-- unclear source, minimize narcotics, if Zofran didnt work could try Reglan but cautious in older people.
--- NOTE | 2018-05-28 13:14 | ECG ---
Date Performed: 05/27/2018 Time Performed: 22:15:15 PTAGE: 83 years EKG: Sinus rhythm WITH MARKED SINUS ARRHYTHMIA BORDERLINE ECG NO PREVIOUS TRACING DOCTOR: Mejia Wolff Interpretating Date/Time 05/28/2018 13:11:35
--- NOTE | 2018-05-28 15:28 | P.PNIM ---
Subjective Interval history: Patient had nausea and vomiting earlier today. Symptoms improved and he tolerated lunch. Continues to have significant back pain. Physical Exam Vital signs: Vital Signs 05/27/18 20:17 05/27/18 21:06 05/28/18 01:12 Temperature 98.7 F Pulse Rate 115 H 105 H 97 H Respiratory Rate 20 18 18 Blood Pressure 138/60 144/82 H 131/73 Pulse Oximetry 96 99 97 05/28/18 02:19 05/28/18 02:30 05/28/18 03:55 Temperature 97.2 F L 97.8 F Pulse Rate 100 H 110 H Respiratory Rate 16 16 16 Blood Pressure 121/61 121/71 Pulse Oximetry 98 97 05/28/18 08:00 05/28/18 12:00 Temperature 97.5 F L 97.4 F L Pulse Rate 99 H 89 Respiratory Rate 18 17 Blood Pressure 122/57 L 113/60 Pulse Oximetry 99 96 Intake & Output 05/27/18 05/28/18 05/28/18 18:59 06:59 18:59 Intake Total 250 / 250 Output Total 1325 / 1325 Balance -1075 / -1075 Weight 55.5 kg Intake: IV 250 / 250 NS Inj 1,000 ML @ 125 mls/hr IV 250 / 250 .CONT .Q8H [facility] Rx#:[id number] Oral 0 / 0 Output: Urine 125 / 125 Urine Amount (Catheter) 1200 / 1200 Indwelling Urethral Catheter 1200 / 1200 Other: Date of Last Bowel Movement 05/26/18 05/26/18 # Bowel Movements 0 Weight On Admission 54.431 kg Narrative: Limited exam due to pain, patient does not want to move. GENERAL: Elderly male. CARDIOVASCULAR: Regular rate and rhythm without murmurs, gallops, or rubs. RESPIRATORY: Breath sounds equal bilaterally. No accessory muscle use. GASTROINTESTINAL: Abdomen soft, non-tender, nondistended. MUSCULOSKELETAL: No cyanosis, or edema. NEURO: Limited exam due to pain but able to move upper and LE equally, generalized weakness. - Urinary Catheter Management Indwelling Urethral Catheter Cath placed during this visit: yes Reason for continuing: Acute urinary retention Insertion date: 05/27/18 Insertion time: 22:05 Results - Labs CBC & Chem 7: 05/28/18 05:44 05/28/18 05:44 Laboratory Results - last 24 hr 05/27/18 05/27/18 05/27/18 22:20 22:32 22:32 WBC 9.4 RBC 4.30 L Hgb 14.3 Hct 41.0 MCV 95.3 MCH 33.3 MCHC 35.0 RDW 12.7 Plt Count 393 MPV 7.2 Neut % (Auto) 70.3 H Lymph % (Auto) 18.3 [place] % (Auto) 9.6 H Eos % (Auto) 1.0 Baso % (Auto) 0.8 Neut # (Auto) 6.6 Lymph # (Auto) 1.7 [place] # (Auto) 0.9 Eos # (Auto) 0.1 Baso # (Auto) 0.1 WBC Differential . Differential Comment Auto diff final PT 10.3 INR 1.0 APTT 28.2 Sodium Potassium Chloride Carbon Dioxide Anion Gap BUN Creatinine Estimated GFR Random Glucose Calcium Magnesium Total Bilirubin AST ALT Alkaline Phosphatase Total Protein Albumin Lipase Urine Color Yellow Urine Clarity Clear Urine pH 6.0 Ur Specific [place] 1.013 Urine Protein Negative Urine Glucose (UA) Negative Urine Ketones Trace H Urine Occult Blood Negative Urine Nitrate Negative Urine Bilirubin Negative Urine Urobilinogen Less than 2 Ur Leukocyte Esterase Negative Micro UA Comment Cath-culture not ind Ur Microscopic Review Not Reportable Urine Culture Comments Cath-cult not ind 05/27/18 05/28/18 05/28/18 22:32 05:44 05:44 WBC 10.7 RBC 4.12 L Hgb 14.1 Hct 39.8 MCV 96.7 MCH 34.3 H MCHC 35.4 RDW 12.5 Plt Count 393 MPV 7.1 Neut % (Auto) 73.8 H Lymph % (Auto) 15.4 [place] % (Auto) 9.1 H Eos % (Auto) 1.0 Baso % (Auto) 0.7 Neut # (Auto) 7.9 H Lymph # (Auto) 1.6 [place] # (Auto) 1.0 H Eos # (Auto) 0.1 Baso # (Auto) 0.1 WBC Differential . Differential Comment Auto diff final PT INR APTT Sodium 131 L 136 Potassium 4.7 4.6 Chloride 97 L 99 Carbon Dioxide 29.7 30.7 Anion Gap 4 L 6 BUN 21 H 21 H Creatinine 1.00 0.83 Estimated GFR 71 L 88 L Random Glucose 100 92 Calcium 9.8 9.1 Magnesium 2.7 H Total Bilirubin 0.5 0.5 AST 21 15 ALT 16 13 Alkaline Phosphatase 95 88 Total Protein 7.1 6.5 D Albumin 3.4 3.1 L Lipase 1597 H 286 Urine Color Urine Clarity Urine pH Ur Specific [place] Urine Protein Urine Glucose (UA) Urine Ketones Urine Occult Blood Urine Nitrate Urine Bilirubin Urine Urobilinogen Ur Leukocyte Esterase Micro UA Comment Ur Microscopic Review Urine Culture Comments - Imaging Impressions Lumbar Spine MRI 05/27/18 21:43 CONCLUSION: 1. There is an acute compression fracture of the L1 vertebral body with approximately 60% loss of vertebral body height. There is posterior convexity of the posterior margin of the L1 vertebral body but it causes no significant spinal canal stenosis. 2. Remaining levels demonstrate mild degenerative change, as above, but no significant spinal canal stenosis or neural foraminal narrowing is present. Thoracic Spine MRI 05/27/18 21:43 CONCLUSION: 1. There is an acute compression fracture involving the L1 vertebral body with approximately 60% height loss. 2. The thoracic spine demonstrates no acute abnormality. There is no spinal canal stenosis or neural foraminal narrowing. Cervical Spine MRI 05/27/18 22:43 CONCLUSION: 1. Multilevel degenerative disc disease, as above, without significant spinal canal stenosis. 2. There is mild right neural foraminal narrowing at C3-C4. 3. There is slight anterolisthesis of C5 on C6 and C6 on C7. Assessment and Plan - Assessment (1) Pancreatitis Code(s): K85.90 - Acute pancreatitis without necrosis or infection, unspecified Status: Acute (2) Urinary retention Code(s): R33.9 - Retention of urine, unspecified Status: Acute (3) Closed compression fracture of L1 lumbar vertebra Code(s): S32.010A - Wedge compression fracture of first lumbar vertebra, initial encounter for closed fracture Status: Acute - Plan 83 Y/O male admitted with L1 compression fracture, failed outpatient management. 1. L1 Compression Fx: s/p syncopal event while in the bath on 05/16/18, seen in [place] ER on 05/22/18 for ongoing c/o back pain, CT Abd/Pelvis w/ L1 compression fracture. Dr. Champagne consulted at that time, no surgical intervention , recommendation for TLSO fitting here at [place]. Now w/ ongoing/progressive back pain and worsening mobility, unable to ambulate due to pain. MRI T/L- Spine w/ acute L1 compression fracture, no canal stenosis. - Appreciate Neurosurgery input. Continue with TLSO brace, may use LSO if more comfortable. PT to mobilize patient as tolerated - Continue with pain control. 2. Elevated lipase: Lipase 1500, no c/o abdominal pain. Lipase normalized. 3. Urinary Retention: CT Abd/Pelvis 05/22/18 w/ distention of bladder and enlargement of prostate, s/p Gale in ER today w/ 1200ml urine output, started on Flomax, monitor I/O - Will consider voiding trial when more mobile. 4. Syncope: reports multiple episodes of syncope, no previous work up in the past as he did not seek medical attention. Telemetry Echo>>Very technically difficult study per [employer]. Would like to obtain orthostatic BP when he is more mobile. 5. DVT Prophylaxis: SCD/Teds (1) Pancreatitis Qualifiers: Chronicity: acute Pancreatitis type: unspecified pancreatitis type Acute pancreatitis complication: unspecified Qualified Code(s): K85.90 - Acute pancreatitis without necrosis or infection, unspecified (3) Closed compression fracture of L1 lumbar vertebra Qualifiers: Encounter type: subsequent encounter Fracture healing: with routine healing Qualified Code(s): S32.010D - Wedge compression fracture of first lumbar vertebra, subsequent encounter for fracture with routine healing
--- NOTE | 2018-05-28 18:22 | ECHRPT ---
Indication: HHD CONCLUSIONS Very technically difficult study. This study was not technically sufficient to allow for evaluation of left ventricular diastolic func tion. There is trace tricuspid valve regurgitation. BP: / HR: Rhythm: Technical Quality:Very technically difficult study FINDINGS LEFT VENTRICLE This study was not technically sufficient to allow for evaluation of left ventricular diastolic func tion. The left ventricle is not well visualized. RIGHT VENTRICLE The right ventricle was not well visualized. LEFT ATRIUM The left atrium was not well visualized. RIGHT ATRIUM The right atrium is not well visualized. ATRIAL SEPTUM The interatrial septum not well visualized. AORTA The aortic root and proximal ascending aorta are not well visualized. MITRAL VALVE No mitral valve regurgitation. AORTIC VALVE Trileaflet aortic valve. No aortic valve regurgitation. No aortic valve stenosis. TRICUSPID VALVE The tricuspid valve is not well visualized. There is trace tricuspid valve regurgitation. The estimated pulmonary arterial pressure is 30 mmHg. Shmuel Hayes DO (Electronically Signed) Final Date:28 May 2018 18:21
[2018-05-29 08:30] LABS: Anion Gap 4 meq/L (5-15); Blood Urea Nitrogen 15 mg/dL (7-18); Calcium 8.4 mg/dL (8.5-10.1); Carbon Dioxide 31.1 meq/L (21.0-32.0); Chloride 100 meq/L (98-107); Glomerular Filtration Rate Greater Than 89 mL/min (>89); Glucose,Random 98 mg/dL (74-106); Potassium 4.2 meq/L (3.5-5.1); Sodium 135 meq/L (136-145)
[2018-05-29] MEDS: Senna/Docusate Sodium 8.6/50 MG Tablet PO SCH ×2 (08:33→23:37)
[2018-05-29 08:56] LABS: Vitamin B12 959 pg/mL (193-986)
--- NOTE | 2018-05-29 17:29 | P.PNIM ---
Subjective Interval history: Patient reports he is feeling better today. He was able to sit up in the chair with the help of the brace. Pain is better controlled. Physical Exam Vital signs: Vital Signs 05/28/18 20:00 05/28/18 20:33 05/29/18 00:00 Temperature 97.6 F 97.9 F Pulse Rate 100 H 74 89 Respiratory Rate 17 18 Blood Pressure 110/56 L 104/57 L Pulse Oximetry 96 96 05/29/18 04:27 05/29/18 07:08 05/29/18 08:00 Temperature 97.8 F 97.8 F Pulse Rate 88 98 H Respiratory Rate 17 15 18 Blood Pressure 113/68 121/58 L Pulse Oximetry 95 92 L 05/29/18 12:00 05/29/18 16:00 Temperature 97.8 F 97.8 F Pulse Rate 90 100 H Respiratory Rate 17 18 Blood Pressure 103/57 L 122/75 Pulse Oximetry 93 L 94 L Intake & Output 05/28/18 05/29/18 05/29/18 18:59 06:59 18:59 Intake Total 1000 / 1000 240 / 240 Output Total 425 / 425 425 / 425 Balance 575 / 575 -185 / -185 Weight 58.1 kg Intake: IV 1000 / 1000 NS Inj 1,000 ML @ 100 mls/hr IV 1000 / 1000 .CONT .Q10H [facility] Rx#:[id number] Oral 240 / 240 Output: Urine 425 / 425 Urine Amount (Catheter) 425 / 425 Indwelling Urethral Catheter 425 / 425 Other: Date of Last Bowel Movement 05/26/18 05/27/18 05/27/18 Narrative: Limited exam due to pain GENERAL: Elderly male. CARDIOVASCULAR: Regular rate and rhythm without murmurs, gallops, or rubs. RESPIRATORY: Breath sounds equal bilaterally. No accessory muscle use. GASTROINTESTINAL: Abdomen soft, non-tender, nondistended. MUSCULOSKELETAL: No cyanosis, or edema. NEURO: Limited exam due to pain but able to move upper and LE equally, generalized weakness. - Urinary Catheter Management Indwelling Urethral Catheter Cath placed during this visit: yes Reason for continuing: Acute urinary retention Insertion date: 05/27/18 Insertion time: 22:05 Results - Labs CBC & Chem 7: 05/28/18 05:44 05/29/18 07:03 Laboratory Results - last 24 hr 05/29/18 07:03 Sodium 135 L Potassium 4.2 Chloride 100 Carbon Dioxide 31.1 Anion Gap 4 L BUN 15 Creatinine 0.75 Estimated GFR Greater than 89 Random Glucose 98 Calcium 8.4 L Vitamin B12 959 TSH 1.820 Assessment and Plan - Assessment (1) Pancreatitis Code(s): K85.90 - Acute pancreatitis without necrosis or infection, unspecified Status: Acute (2) Urinary retention Code(s): R33.9 - Retention of urine, unspecified Status: Acute (3) Closed compression fracture of L1 lumbar vertebra Code(s): S32.010A - Wedge compression fracture of first lumbar vertebra, initial encounter for closed fracture Status: Acute - Plan 83 Y/O male admitted with L1 compression fracture, failed outpatient management. 1. L1 Compression Fx: s/p syncopal event while in the bath on 05/16/18, seen in [place] ER on 05/22/18 for ongoing c/o back pain, CT Abd/Pelvis w/ L1 compression fracture. Dr. Champagne consulted at that time, no surgical intervention , recommendation for TLSO fitting here at [place]. Now w/ ongoing/progressive back pain and worsening mobility, unable to ambulate due to pain. MRI T/L- Spine w/ acute L1 compression fracture, no canal stenosis. - Appreciate Neurosurgery input. Continue with TLSO brace, may use LSO if more comfortable. PT to mobilize patient as tolerated - Continue with pain control. He is moving better. 2. Elevated lipase: Lipase 1500, no c/o abdominal pain. Lipase normalized. 3. Urinary Retention: CT Abd/Pelvis 05/22/18 w/ distention of bladder and enlargement of prostate, s/p Gale in ER today w/ 1200ml urine output, started on Flomax, monitor I/O -Can consider voiding trial outpatient when he is more mobile. 4. Syncope: reports multiple episodes of syncope, no previous work up in the past as he did not seek medical attention. Telemetry Echo>>Very technically difficult study per [employer] Consultant. Would like to obtain orthostatic BP when he is more mobile. 5. DVT Prophylaxis: SCD/Teds Discharge Planning: Anticipate discharge to SNF tomorrow. (1) Pancreatitis Qualifiers: Chronicity: acute Pancreatitis type: unspecified pancreatitis type Acute pancreatitis complication: unspecified Qualified Code(s): K85.90 - Acute pancreatitis without necrosis or infection, unspecified (3) Closed compression fracture of L1 lumbar vertebra Qualifiers: Encounter type: subsequent encounter Fracture healing: with routine healing Qualified Code(s): S32.010D - Wedge compression fracture of first lumbar vertebra, subsequent encounter for fracture with routine healing
[2018-05-30] MEDS: Senna/Docusate Sodium 8.6/50 MG Tablet PO SCH ×2 (09:41→22:43)
--- NOTE | 2018-05-30 17:31 | P.DS ---
Date of admission: 05/28/18 00:08 Primary care physician: UNKNOWN Brief History from admission: HPI as documented by the admitting physician: This is an 83 year old male w/ no significant PMH who was brought to the ER by family for c/o back pain. Seen in [place] ER on 05/22/18 for similar complaints. Pt had apparent fall w/ syncope few days prior to that on 05/16/18 and had fall while in the bathtub, had ongoing complaints of back pain and presented to [place] ER on 05/22. CT Abd/Pelvis at that time w/ moderate to severe L1 compression fracture and distention of the bladder, Dr. Champagne was contacted by the ER physician who recommended non-surgical intervention and to have pt come to [place] to be fitted for a TLSO brace. Per pt and family they weren't able to come here until tonight. and daughter at bedside report pt w/ worsening back pain, inability to ambulate due to pain complaints and decreased urine output. On arrival, BP 138/60, HR 115, O2 sat 96% on RA, Afebrile. CBC unremarkable. Lipase 1597. U/a negative for UTI. S/p Gale placement w/ approx 1200ml output. reports issues w/ urinary retention since fall. C-Spine MRI w/ no significant stenosis, T/L-Spine MRI w/ acute compression fracture L1 w/ 60% loss of height, no significant canal stenosis. Patient update on day of discharge: Patient reports he is feeling okay today. Participating with physical therapy. Pain is controlled. Looking forward to rehab. DS: Diagnosis - Discharge Diagnosis (1) Pancreatitis Status: Acute (2) Urinary retention Status: Acute (3) Closed compression fracture of L1 lumbar vertebra Status: Acute DS: Medications - Discharge Medications Prescriptions: hydrocodone-acetaminophen 1 tab PO Q4H PRN #12 tab PRN Reason: Pain>5 DS: Summary Hospital Course: 83 Y/O male admitted with L1 compression fracture, failed outpatient management. Evaluation and treatment course detailed below: 1. L1 Compression Fx: s/p syncopal event while in the bath on 05/16/18, seen in [place] ER on 05/22/18 for ongoing c/o back pain, CT Abd/Pelvis w/ L1 compression fracture. Dr. Champagne consulted at that time, no surgical intervention , recommendation for TLSO fitting here at [place]. Now w/ ongoing/progressive back pain and worsening mobility, unable to ambulate due to pain. MRI T/L- Spine w/ acute L1 compression fracture, no canal stenosis. - Appreciate Neurosurgery input. Continue with TLSO brace, may use LSO if more comfortable. PT to mobilize patient as tolerated - Continue with pain control. He is moving better. Patient is discharged to SNF to continue rehabilitation efforts. 2. Elevated lipase: Lipase 1500, no c/o abdominal pain. Lipase normalized. 3. Urinary Retention: CT Abd/Pelvis 05/22/18 w/ distention of bladder and enlargement of prostate, s/p Gale in ER today w/ 1200ml urine output, started on Flomax. -Can consider voiding trial outpatient with urology when he is more mobile. 4. Syncope: reports multiple episodes of syncope, no previous work up in the past as he did not seek medical attention. Telemetry Echo>>Very technically difficult study per Gl[employer] Department Supervisor. No further symptoms here. - Time Spent with Patient Total time spent providing and/or coordinating discharge services: Greater than 30 minutes - Quality: VTE Deep Vein Thrombosis/Pulmonary Embolism Present on Admission: No Exam Vital signs: Vital Signs 05/29/18 20:19 05/29/18 23:28 05/30/18 00:00 Temperature 97.8 F 97.5 F L Pulse Rate 104 H 91 H 89 Respiratory Rate 18 18 Blood Pressure 113/66 131/70 Pulse Oximetry 96 95 05/30/18 03:19 05/30/18 04:00 05/30/18 08:00 Temperature 97.2 F L 97.8 F Pulse Rate 111 H 101 H 115 H Respiratory Rate 18 18 Blood Pressure 109/51 L 133/70 Pulse Oximetry 95 95 05/30/18 12:00 Temperature 97.4 F L Pulse Rate 100 H Respiratory Rate 16 Blood Pressure 120/61 Pulse Oximetry 95 Intake & Output 05/29/18 05/30/18 05/30/18 18:59 06:59 18:59 Intake Total 650 / 650 480 / 480 Output Total 475 / 475 875 / 875 Balance 175 / 175 -395 / -395 Weight 58.1 kg Intake: Oral 650 / 650 480 / 480 Output: Urine 875 / 875 Urine Amount (Catheter) 475 / 475 Indwelling Urethral Catheter 475 / 475 Other: Date of Last Bowel Movement 05/27/18 05/27/18 05/27/18 # Bowel Movements 0 Narrative: Limited exam due to pain GENERAL: Elderly male. CARDIOVASCULAR: Regular rate and rhythm without murmurs, gallops, or rubs. RESPIRATORY: Breath sounds equal bilaterally. No accessory muscle use. GASTROINTESTINAL: Abdomen soft, non-tender, nondistended. MUSCULOSKELETAL: No cyanosis, or edema. NEURO: Limited exam due to pain but able to move upper and LE equally, generalized weakness. Results Procedures completed during hospitalization: None - Impressions ITS Impressions Lumbar Spine MRI 05/27/18 21:43 CONCLUSION: 1. There is an acute compression fracture of the L1 vertebral body with approximately 60% loss of vertebral body height. There is posterior convexity of the posterior margin of the L1 vertebral body but it causes no significant spinal canal stenosis. 2. Remaining levels demonstrate mild degenerative change, as above, but no significant spinal canal stenosis or neural foraminal narrowing is present. Thoracic Spine MRI 05/27/18 21:43 CONCLUSION: 1. There is an acute compression fracture involving the L1 vertebral body with approximately 60% height loss. 2. The thoracic spine demonstrates no acute abnormality. There is no spinal canal stenosis or neural foraminal narrowing. Cervical Spine MRI 05/27/18 22:43 CONCLUSION: 1. Multilevel degenerative disc disease, as above, without significant spinal canal stenosis. 2. There is mild right neural foraminal narrowing at C3-C4. 3. There is slight anterolisthesis of C5 on C6 and C6 on C7. Discharge Plan - Discharge Disposition Patient Disposition: Discharge to SNF - Discharge Condition Condition: Stable - Discharge Order Discharge Orders: Discharge Order (Routine); Ordered 05/30/18 Ordered By: Tina Wayne ED Use Only Admit Order (Routine); Ordered 05/28/18 Ordered By: Chito Motley - Physicians Team Primary Care Provider: UNKNOWN, Attending Provider: Tina Wayne Other Providers: Neto Champagne MD
[2018-05-31] MEDS: Senna/Docusate Sodium 8.6/50 MG Tablet PO SCH ×2 (09:56→21:47)
--- NOTE | 2018-05-31 17:40 | P.PNIM ---
Subjective Interval history: Follow up L1 compression fracture, nausea, elevated lipase Patient is resting in bed. Family members present at bedside. Awaiting discharge to rehab. No complaints voiced at present time. Physical Exam Vital signs: Last Vital Signs Temp 97.7 F 05/31/18 04:50 Pulse 92 H 05/31/18 04:50 Resp 18 05/31/18 04:50 BP 143/79 H 05/31/18 04:50 Pulse Ox 96 05/31/18 04:50 Intake & Output 05/29/18 05/30/18 05/31/18 06/01/18 06:59 06:59 06:59 06:59 Intake Total 1240 / 1240 1130 / 1130 1680 / 1680 Output Total 850 / 850 1350 / 1350 1900 / 1900 Balance 390 / 390 -220 / -220 -220 / -220 Weight 58.1 kg 58.1 kg 54.6 kg Narrative: GENERAL: Elderly male, no acute distress CARDIOVASCULAR: Regular rate and rhythm without murmurs, gallops, or rubs. RESPIRATORY: Breath sounds equal bilaterally. No accessory muscle use. GASTROINTESTINAL: Abdomen soft, non-tender, nondistended. MUSCULOSKELETAL: No cyanosis, or edema. NEURO: Limited exam due to pain but able to move upper and LE equally, generalized weakness. Urinary Catheter Management Indwelling Urethral Catheter: Cath placed during this visit: yes Urethral indwelling: Yes Reason for continuing: Acute urinary retention Insertion date: 05/27/18 Insertion time: 22:05 Results Labs CBC & Chem 7: 05/28/18 05:44 05/29/18 07:03 Procedures Procedures: None Assessment and Plan (1) Pancreatitis: Code(s): K85.90 - Acute pancreatitis without necrosis or infection, unspecified Status: Acute (2) Urinary retention: Code(s): R33.9 - Retention of urine, unspecified Status: Acute (3) Closed compression fracture of L1 lumbar vertebra: Code(s): S32.010A - Wedge compression fracture of first lumbar vertebra, initial encounter for closed fracture Status: Acute Plan 83 Y/O male admitted with L1 compression fracture, failed outpatient management. L1 Compression Fx: s/p syncopal event while in the bath on 05/16/18, seen in [place] ER on 05/22/18 for ongoing c/o back pain, CT abd/Pelvis w/ L1 compression fracture. Dr. Champagne consulted at that time, no surgical intervention , recommendation for TLSO fitting here at [place]. Now w/ ongoing/progressive back pain and worsening mobility, unable to ambulate due to pain. MRI T/L-Spine w/ acute L1 compression fracture, no canal stenosis. -appreciate Neurosurgery input. Continue with TLSO brace, may use LSO if more comfortable. PT to mobilize patient as tolerated -continue with pain control Elevated lipase - resolved -Lipase 1500 on admission, repeat next day 286 Urinary Retention - evaluated 05/31/18 -CT Abd/Pelvis 05/22/18 w/ distention of bladder and enlargement of prostate, s/ p Gale in ER today w/ 1200ml urine output, started on Flomax, monitor I/O -can consider voiding trial outpatient when he is more mobile. Syncope: reports multiple episodes of syncope, no previous work up in the past as he did not seek medical attention. -Telemetry -Echo>>Very technically difficult study per Bench Tool Maker. DVT Prophylaxis: SCD/Teds Please refer to discharge summary completed on 05/30/18. Progress Note: Quality VTE Deep Vein Thrombosis/Pulmonary Embolism Present on Admission: No _ (1) Pancreatitis Qualifiers: Acute pancreatitis complication: unspecified Chronicity: acute Pancreatitis type: unspecified pancreatitis type Qualified Code(s): K85.90 - Acute pancreatitis without necrosis or infection, unspecified (2) Closed compression fracture of L1 lumbar vertebra Qualifiers: Encounter type: subsequent encounter Fracture healing: with routine healing Qualified Code(s): S32.010D - Wedge compression fracture of first lumbar vertebra, subsequent encounter for fracture with routine healing
[2018-06-01] MEDS: Senna/Docusate Sodium 8.6/50 MG Tablet PO SCH (08:47)
--- NOTE | 2018-06-01 18:29 | P.PNIM ---
Subjective Interval history: Follow up L1 compression fracture, nausea, elevated lipase Patient is resting with his eyes closed. He responds to verbal stimuli and gentle touch. Daughter and at bedside. They state patient is usually at night and sleeps during the day. When awake patient does report back pain and rates it as a 8/10. No acute distress noted. CM arranging for rehab placement, possible discharge today. Physical Exam Vital signs: Last Vital Signs Temp 97.8 F 06/01/18 12:00 Pulse 113 H 06/01/18 12:00 Resp 18 06/01/18 12:00 BP 120/64 06/01/18 12:00 Pulse Ox 95 06/01/18 12:00 Intake & Output 05/30/18 05/31/18 06/01/18 06/02/18 06:59 06:59 06:59 06:59 Intake Total 1130 / 1130 1680 / 1680 300 / 300 Output Total 1350 / 1350 1900 / 1900 1525 / 1525 Balance -220 / -220 -220 / -220 -1225 / -1225 Weight 58.1 kg 54.6 kg 55.9 kg Narrative: GENERAL: Elderly male, no acute distress CARDIOVASCULAR: Regular rate and rhythm without murmurs, gallops, or rubs. RESPIRATORY: Breath sounds equal bilaterally. No accessory muscle use. GASTROINTESTINAL: Abdomen soft, non-tender, nondistended. MUSCULOSKELETAL: No cyanosis, or edema. NEURO: Limited exam due to pain but able to move upper and LE equally, generalized weakness. Urinary Catheter Management Indwelling Urethral Catheter: Cath placed during this visit: yes Urethral indwelling: Yes Reason for continuing: Acute urinary retention Insertion date: 05/31/18 Insertion time: 11:00 Results Labs CBC & Chem 7: 05/28/18 05:44 05/29/18 07:03 Procedures Procedures: None Assessment and Plan Plan 83 Y/O male admitted with L1 compression fracture, failed outpatient management. L1 Compression Fx: s/p syncopal event while in the bath on 05/16/18, seen in [place] ER on 05/22/18 for ongoing c/o back pain, CT abd/Pelvis w/ L1 compression fracture. Dr. Champagne consulted at that time, no surgical intervention , recommendation for TLSO fitting here at [place]. Now w/ ongoing/progressive back pain and worsening mobility, unable to ambulate due to pain. MRI T/L-Spine w/ acute L1 compression fracture, no canal stenosis - evaluated 06/01/18 -appreciate Neurosurgery input. Continue with TLSO brace, may use LSO if more comfortable. PT to mobilize patient as tolerated -continue with pain control Elevated lipase - resolved -Lipase 1500 on admission, repeat next day 286 Urinary Retention - evaluated 06/01/18, stable -CT Abd/Pelvis 05/22/18 w/ distention of bladder and enlargement of prostate, s/ p Gale in ER today w/ 1200ml urine output, started on Flomax, monitor I/O -can consider voiding trial outpatient when he is more mobile. Syncope: reports multiple episodes of syncope, no previous work up in the past as he did not seek medical attention. -Telemetry -Echo>>Very technically difficult study per Thermodynamics Teacher. DVT Prophylaxis: SCD/Teds Patient to be discharge to SNF today. Please refer to discharge summary completed on 05/30/18. Discussed Condition With: RN, patient, daughter and at bedside Progress Note: Quality VTE Deep Vein Thrombosis/Pulmonary Embolism Present on Admission: No
== END 2018-06-01 14:48 ==
LOC: NEPE 20:09 → NEDA 20:09 → OBSVTOIN 05-28 00:08 → N06 05-28 01:58
PROVIDERS: ADMIT Internal Medicine; ATTEND Internal Medicine
DX: N32.89 Other specified disorders of bladder; Y92.002 Bathroom of unspecified non-institutional (private) residence as the place of occurrence of the external cause; N40.1 Benign prostatic hyperplasia with lower urinary tract symptoms; W18.2XXA Fall in (into) shower or empty bathtub, initial encounter; R33.8 Other retention of urine; Y93.E1 Activity, personal bathing and showering; Z90.2 Acquired absence of lung [part of]; R74.8 Abnormal levels of other serum enzymes; S32.010A Wedge compression fracture of first lumbar vertebra, initial encounter for closed fracture; K85.90 Acute pancreatitis without necrosis or infection, unspecified; R32 Unspecified urinary incontinence